=== PATIENT | female | born 1960 | race Asian ===

== ENCOUNTER 2018-01-07 07:43 | Day surgery (SDC) | payer OTHER ==
[~2018-01-07] VITALS: Ht 160 cm; Wt 51.9 kg
[~2018-01-07 07:43] MED LIST: BUPIVACAINE/PF 0.25% ONE; CHOL10003 PO; EPINEPHRINE 1 MG/ML, 1ML ONE; LISI-170 PO; METO100T5 PO; NEOMY/POLYMYXIN B GU IRR. 1 ML IRRIG ONE
[2018-01-07] MEDS ORDERED: LACTATED RINGERS 1,000 ML IV SCH (08:04)
[2018-01-07 08:28] VITALS: BP 152/93
[2018-01-07] MEDS ORDERED: ONDANSETRON 2MG/ML, 2ML IVPush PRN (11:30)
[2018-01-07] MEDS ORDERED: HYDROcodone/APAP 7.5-325MG/15ML UDC PO PRN (11:30)
[2018-01-07] MEDS ORDERED: OXYcodone 5 MG/5 ML ORAL.SOL UDC PO PRN (11:30)
[2018-01-07] MEDS ORDERED: morphine SULFATE 10 MG/ML, 1ML IV PRN (11:30)
[2018-01-07] MEDS ORDERED: MEPERIDINE/PF 25MG/0.5ML IVPush PRN (11:30)
[2018-01-07] MEDS ORDERED: FENTANYL PF 100 MCG/2ML IV PRN (11:30)
[2018-01-07] MEDS ORDERED: HYDROcodone/APAP 7.5-325MG/15ML UDC ONE (12:04)
[2018-01-07] MEDS ORDERED: LISINOPRIL 20 MG TABLET PO ONE (14:30)
[2018-01-07] MEDS ORDERED: hydrALAzine 20 MG/ML, 1ML ONE (16:42)
[2018-01-07] MEDS ORDERED: hydrALAzine 20 MG/ML, 1ML IV ONE (17:00)
== END 2018-01-07 17:23 ==
LOC: OUT 07:43 → MERGE 09:30 → OUT 17:23
PROVIDERS: ATTEND Obstetrics & Gynecology Female Pelvic Medicine and Reconstructive Surgery
DX: N81.89 Other female genital prolapse (principal); N39.3 Stress incontinence (female) (male); N95.0 Postmenopausal bleeding; D25.9 Leiomyoma of uterus, unspecified; I10 Essential (primary) hypertension
CPT/HCPCS: 57265; 57282; 57288; 58552; 88307; C1771; J0171; J0360; J0690; J1100; J1940; J2405; J2704; J2710; J3010; J3490; J7120